=== PATIENT | female | born 1965 | race Caucasian/White ===

== ENCOUNTER → 2016-09-14 | Day surgery (SDC) | payer BC ==
[~2016-09-14] MED LIST: AMOXICILLIN PO; BRIMONIDINE TARTRATE; COMBIGAN EYE DRO5 ML OP; DEXILANT60 MG PO; HYDROCODON-ACE1 EAC9 PO; INDERAL LA120 MG PO; NAPROSYN500 MG PO; OFLOXACIN; PROPRANOLOL HCL80 M1 PO; TIMOPTIC 0.5% OP5 M1; VOLTAREN75 MG PO
--- NOTE | ~2016-09-14 | OR ---
Unit #: [id number] #: [id number] Patient: GRANT GOTTLIEB [id number] [address] [place], [place] [address] [id number] MR#: [id number] NAME: GRANT GOTTLIEB ROOM: Date of Procedure: 09/14/2016 Admission Date: 09/14/2016 Surgeon: Hood Trevino M.D. : 1965 Attending Physician: Hood Trevino M.D. Primary Care Physician: Paulo Martinez M.D. OPERATIVE REPORT PREOPERATIVE DIAGNOSES The patient has come for screening colonoscopy, but on further questioning mentions issues of celiac disease. She does have some [place] ancestry and has intermittent diarrhea. Therefore, an upper endoscopy and a terminal ileum biopsies being done at the same time. We also elliot her labs for TBG, IgA. PROCEDURES PERFORMED Upper gastrointestinal endoscopy and biopsy as well as colonoscopy up to cecum and terminal ileum. POSTOPERATIVE DIAGNOSES For upper endoscopy: Mild prepyloric antral erosive gastritis. Otherwise, normal examination up to third part of the duodenum. Biopsies were obtained from the antrum for CLOtest. In addition, biopsies were also obtained from the deep descending duodenal folds to look for any evidence of partial villous atrophy or celiac disease. For colonoscopy: Mild sigmoid and descending colon diverticulosis. Otherwise, normal examination up to cecum and terminal ileum. The quality of the prep was excellent. No polyps or mucosal abnormalities were seen. RECOMMENDATIONS 1. Follow up in the office in 3 months' time along with the results of biopsies. 2. Repeat colonoscopy in 10 years. SEDATION USED MAC. DESCRIPTION OF PROCEDURE Following detailed explanation of potential risks and complications of upper endoscopy and a colonoscopy, namely perforation, bleeding, complication related to sedation, the patient was brought to GI lab and laid in the left lateral decubitus position. Lubricated tip of the Olympus video upper endoscope was passed through the bite block into the proximal esophagus under direct vision. The entire esophageal mucosa was examined and appeared normal. Z-line was nicely demarcated, there being no esophagitis or hiatus hernia. The scope was then advanced into the gastric cavity and the latter was insufflated. Mucosa of the fundus, body, and antrum was examined and mild prepyloric antral erosive gastritis noted in the form of erosions in the sector of the prepyloric antral area. Unit #: [id number] #: [id number] Patient: GRANT GOTTLIEB Pylorus was intubated with visualization of the normal duodenal bulb and second and third part of the duodenum. Upon withdrawal and retroflexion; incisura, cardia, and greater curve was examined and biopsy was obtained from the antrum for CLOtest. The scope was then withdrawn in the distal esophagus. The entire esophageal mucosa was examined all the way up to pharynx. No additional findings were noted. The examination table was then turned by 180 degrees and the patient was positioned for a colonoscopy. A digital rectal examination was performed, which was normal. Lubricated tip of the Olympus video colonoscope was inserted through the anus and advanced under direct vision. The scope was advanced past rectosigmoid into descending colon. Scant small diverticula were noted in this area. The scope tip was then navigated all the way up to cecum with visualization of the ileocecal valve and the appendiceal orifice. Preparation was excellent with good visualization and photodocumentation was obtained. Last several inches of the terminal ileum were also visualized after intubation of the ileocecal valve and appeared normal. Successive segments of the colonic mucosa were examined upon withdrawal and appeared unremarkable. There being no polyps, mass lesions, or AVMs. Other than the scant diverticula seen in the left side, no other abnormalities were noted. The patient did not have any internal hemorrhoids at the anal verge. The scope was then withdrawn and the patient returned to the recovery area. She tolerated the procedure without any postprocedure complications. Dictated by... Diony Stokes/nelson TD: 09/14/2016 20:06 JOB #: [id number] OPERATIVE REPORT Page 1 of 1 X Hood Trevino MD X PROCEDURE OPERATIVE NOTE
== END | disposition home or self-care (01) ==
LOC: COPS 12:18
DX: Z12.11 Encounter for screening for malignant neoplasm of colon (principal); K29.60 Other gastritis without bleeding; K57.30 Diverticulosis of large intestine without perforation or abscess without bleeding; R19.7 Diarrhea, unspecified; Z83.79 Family history of other diseases of the digestive system
CPT/HCPCS: 43239; G0121; 83516; 84703; 87077; 88305; J2250